=== PATIENT | female | born 1965 | race Caucasian/White ===

== ENCOUNTER 2017-10-18 18:56 | Inpatient (IN) | payer MEDICAID ==
[~2017-10-18] VITALS: Ht 167.6 cm; Wt 61.8 kg
--- NOTE | 2017-10-18 19:02 | NUR ---
[id number] FROM HOME,PT CALLED 911 BECAUSE SHE IS NOT FEELING GOOD. DIFFICULTY EXPRESSING SELF. PATIENT IS AWAKE AND ALERT, RESPONSE SLOW; PT NOT IN DISTRESS.
[2017-10-18 19:21] LABS: BASOPHILS # (AUTO) 0.1 /CMM (0.0-0.2); BASOPHILS % (AUTO) 0.7 % (0.0-2.0); EOSINOPHILS % (AUTO) 0.7 % (0.0-6.0); HEMATOCRIT 51 % (33-45); HEMOGLOBIN 17.3 g/dL (11.5-14.8); LYMPHOCYTES % (AUTO) 12.3 % (20.0-44.0); MEAN CORPUSCULAR HGB CONC 34 g/dl (31.0-36.0); MEAN CORPUSCULAR VOLUME 88 fL (82-100); MONOCYTES # (AUTO) 0.8 /CMM (0.1-1.30); MONOCYTES % (AUTO) 10.4 % (2.0-12.0); NEUTROPHILS # (AUTO) 6.1 /CMM (1.8-8.9); NEUTROPHILS % (AUTO) 75.9 % (43.0-81.0); PLATELET COUNT (AUTO) 326 /CMM (150-450); RDW COEFFICIENT OF VARIATION 12.1 (11.5-15.0); RED BLOOD CELL COUNT(AUTO) 5.76 MIL/uL (4.0-5.2); WHITE BLOOD COUNT (AUTO) 8.1 K/uL (4.3-11.0)
[2017-10-18] MEDS ORDERED: IV NS 0.9% 1,000 ML BAG IV ONE (19:30)
[2017-10-18 19:38] LABS: CALCIUM, SERUM 9.9 mg/dL (8.5-10.1); CARBON DIOXIDE 27 mmol/L (21-32); CHLORIDE 96 mmol/L (98-107); GLUCOSE 112 mg/dL (74-106); INR 1.01 (0.85-1.15); POTASSIUM 3.5 mmol/L (3.5-5.1); SODIUM SERUM 134 mmol/L (136-145); UREA NITROGEN, BLOOD 8 mg/dL (7-18)
[2017-10-18 19:42] LABS: TROPONIN I < 0.017 ng/mL (0.00-0.056)
[2017-10-18 19:44] LABS: ALANINE AMINOTRANSFERASE 21 U/L (12-78); ALBUMIN 4.4 g/dL (3.4-5.0); ALKALINE PHOSPHATASE 72 U/L (46-116); ASPARTATE AMINOTRANSFERASE 14 U/L (15-37); BILIRUBIN,DIRECT 0.2 mg/dL (0.0-0.2); BILIRUBIN,TOTAL 0.9 mg/dL (0.2-1.0); TOTAL PROTEIN, SERUM 8.6 g/dL (6.4-8.2)
[2017-10-18] MEDS ORDERED: CT SWABBABLE VALVE TRANS SET 1 EA INFUS.SET MC ONE (19:45)
[2017-10-18] MEDS ORDERED: IV NS 0.9% 250 ML IV ONE (19:45)
[2017-10-18] MEDS ORDERED: IOHEXOL-350 100 ML VIAL IV ONE (19:45)
--- NOTE | 2017-10-18 19:50 | NUR ---
PATIENT WAS TAKEN TO CT
[2017-10-18 20:03] LABS: CHOLESTEROL 197 mg/dL (<200); HDL CHOLESTEROL 68 mg/dL (40-60); LDL 120 mg/dL (0-99); TRIGLYCERIDES 60 mg/dL (30-150)
[2017-10-18] MEDS ORDERED: DEXAMETHASONE SOD PHOSPHATE 10 MG/ML VIAL ONE (20:22)
[2017-10-18] MEDS ORDERED: LEVETIRACETAM (500MG) 500 MG/5 ML VIAL IV ONE (20:22)
[2017-10-18] MEDS ORDERED: LEVETIRACETAM (500MG) 500 MG in IV NS 0.9% 100 ML IV SCH (20:30)
[2017-10-18] MEDS ORDERED: DEXAMETHASONE SOD PHOSPHATE 10 MG/ML VIAL IV ONE (20:30)
--- NOTE | 2017-10-18 20:59 | NUR ---
DR. MORENO PAGED FOR ADMISSION.
[2017-10-18] MEDS ORDERED: MAGNESIUM HYDROXIDE 30 ML UDC PO PRN (21:30)
[2017-10-18] MEDS ORDERED: ONDANSETRON HCL/PF 4 MG/2 ML VIAL IVP PRN (21:30)
[2017-10-18] MEDS ORDERED: HYDROCODONE/APAP 5/325MG 1 EACH TABLET PO PRN (21:30)
[2017-10-18] MEDS ORDERED: ALBUTEROL FS 2.5 MG/3 ML VIAL.NEB NEB PRN (21:30)
[2017-10-18] MEDS ORDERED: MAG HYDROX/AL HYDROX/SIMETH 30 ML UDC PO PRN (21:30)
[2017-10-18] MEDS ORDERED: MORPHINE SULFATE INJ 2 MG/ML DISP.SYRIN IV PRN (21:30)
[2017-10-18] MEDS ORDERED: ACETAMINOPHEN 325 MG TABLET PO PRN (21:30)
[2017-10-18] MEDS ORDERED: hydrALAZINE HCL IV 20 MG VIAL IV PRN (21:30)
[2017-10-18] MEDS ORDERED: Z GUARD REMEDY 2 OZ OINT TP PRN (21:30)
--- NOTE | 2017-10-18 21:45 | NUR ---
PATIENTS FRIENDS PAPO MARCELLUS
[2017-10-18 22:08] LABS: THYROID STIMULATING HORMONE 0.342 uIU/mL (0.358-3.74)
[2017-10-18 22:25] LABS: ABG BASE EXCESS 1.6 mmol/L; ABG OXYGEN SATURATION 96.7 % (92.0-98.5); ABG PCO2 28.7 mmHg (35.0-45.0); ABG PH 7.523 (7.350-7.450); ABG PO2 85.7 mmHg (75.0-100.0); AaDO2 29.7 mmHg; COHb 0.5 % (0.5-1.5); MetHb 0.6 % (0.0-1.5); O2Hb 95.6 % (94.0-97.0); SITE, ABG Right Radial; VENT MODE, BG R.A.
[2017-10-18 22:56] VITALS: BP 143/88
--- NOTE | 2017-10-18 23:00 | NUR ---
SHAKE SPLITTER RCD PT FROM ER W/DX ICH; PT IS A/O x4 ABLE TO ANSWER ALL QUESTIONS APPROPRIATELY AND ABLE TO MOVE ALL EXTREMITIES. NS/NSR ON MONITOR. CLEAR LUNG SOUNDS ON ROOM AIR. UNABLE TO DO PENDING CTS AT THIS TIME PT RECENTLY RCD CONTRAST; PER RD CT CAN BE DONE IN THE AM. NOTIFIED. PT EDUCATED ON PLAN OF CARE.
[2017-10-18] MEDS: SIMVASTATIN 10 MG TABLET PO SCH (23:11)
[2017-10-18] MEDS: IV NS 0.9% 1,000 ML IV PRN (23:12)
[2017-10-18 23:17] VITALS: BP 137/95
[2017-10-18] MEDS: LEVETIRACETAM (500MG) 500 MG in IV NS 0.9% 100 ML IV SCH (23:22)
[2017-10-18 23:30] VITALS: BP 144/96
[2017-10-19] VITALS (39 sets, daily range): BP systolic 111–158; BP diastolic 50–102
[2017-10-19] MEDS ORDERED: DEXTROSE 50%-WATER 50 ML DISP.SYRIN IV PRN (01:00)
--- NOTE | 2017-10-19 01:00 | NUR ---
DISPATCH COORDINATOR PT REMAINS A/O x4; ABLE TO MAKE ALL NEEDS KNOWN. DENIES PAIN. ABLE TO REPOSITION SELF. ASSISTED TO USE BED RAMOS.
[2017-10-19] MEDS ORDERED: INSULIN REGULAR, HUMAN 100 UNIT/ML 3 ML VIAL ONE (01:13)
[2017-10-19] MEDS: BLOOD SUGAR DIAGNOSTIC 1 EACH STRIP IN SCH ×5 (01:18→23:07)
[2017-10-19] MEDS: INSULIN REGULAR, HUMAN 100 UNIT/ML 3 ML VIAL SQ PRN ×3 (01:21→17:06)
[2017-10-19 04:38] LABS: BASOPHILS % (AUTO) 0.4 % (0.0-2.0); HEMATOCRIT 46 % (33-45); HEMOGLOBIN 15.9 g/dL (11.5-14.8); LYMPHOCYTES # (AUTO) 0.5 /CMM (0.8-4.8); LYMPHOCYTES % (AUTO) 5.4 % (20.0-44.0); MEAN CORPUSCULAR HGB CONC 35 g/dl (31.0-36.0); MEAN CORPUSCULAR VOLUME 87 fL (82-100); MONOCYTES # (AUTO) 0.4 /CMM (0.1-1.30); MONOCYTES % (AUTO) 4.1 % (2.0-12.0); NEUTROPHILS # (AUTO) 8.3 /CMM (1.8-8.9); NEUTROPHILS % (AUTO) 90.1 % (43.0-81.0); PLATELET COUNT (AUTO) 329 /CMM (150-450); RDW COEFFICIENT OF VARIATION 11.9 (11.5-15.0); WHITE BLOOD COUNT (AUTO) 9.2 K/uL (4.3-11.0)
[2017-10-19 04:47] LABS: CALCIUM, SERUM 9.3 mg/dL (8.5-10.1); CREATININE 0.8 mg/dL (0.6-1.3); MAGNESIUM 2.1 mg/dL (1.8-2.4); PHOSPHORUS 4.4 mg/dL (2.5-4.9); POTASSIUM 3.5 mmol/L (3.5-5.1)
--- NOTE | 2017-10-19 06:43 | NUR ---
WAREHOUSE GUARD PT REMAINED A/O x4; VSS. PT DENIES PAIN. ABLE TO FULLY PARTICIPATE IN ADLs.
--- NOTE | 2017-10-19 07:41 | NUR ---
RN INITIAL NOTES RECEIVED PT AWAKE AND ALERT WITH NAD. PT IS ABLE TO VERBALIZE NEEDS AND DENIES PAIN AT THIS TIME. ABLE TO PARTICIPATE WITH ADLS WITHOUT LIMITATIONS; ROM WNL; SPEECH IS CLEAR. PT DENIES HEADACHE OR BLURRING OF VISION. IFV INFUSING WELL. SAFETY ENSURED. SINUS RHYTHM ON THE MONITOR. ALL NEEDS ATTENDED. WILL MONITOR
[2017-10-19] MEDS: PANTOPRAZOLE 40 MG VIAL IV SCH (08:48)
[2017-10-19] MEDS: DEXAMETHASONE SOD PHOSPHATE 10 MG/ML VIAL IV SCH ×2 (08:50→16:05)
--- NOTE | 2017-10-19 09:56 | NUR ---
RN NOTES PT SEEN AND ASSESSED BY DR BRITO; SCHEDULED KEPPRA NOT GIVEN , ORDER DISCONTINUED. PT ALSO SEEN AND ASSESSED BY SPEECH THERAPIST
--- NOTE | 2017-10-19 10:58 | NUR ---
Social service consult requested by Dr. Loo for next of kin contact. Pt. 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 This is a new diagnosis for pt. that was discovered at this hospitalization. SW met with pt. bedside. Pt. is alert and oriented x 4. Pt. states [place] alone [place] [address], [address] in [place]. Pt's emergency contacts are her friends Mirta and Iva . Pt's family is in [place] [facility] [facility]. Per pt. she does not want her family to know about her diagnosis at this time. Pt. stated, she was drinking the weight loss detox tea and had high blood pressure. She started feeling very sick and came to [facility]. Pt. stated she is glad she came or else she would have not know about her brain tumor. SW provided active listening and emotional support and informed pt. she is available, if needed. No other social service needs are required at this time. SW is available, if needed.
[2017-10-19] MEDS: LEVETIRACETAM (500MG) 500 MG in IV NS 0.9% 100 ML IV SCH ×2 (11:25→21:59)
[2017-10-19] MEDS ORDERED: HYDR25TA4 PO (15:26)
[2017-10-19] MEDS: IV NS 0.9% 1,000 ML IV PRN (16:06)
[2017-10-19] MEDS ORDERED: IOHEXOL-300 100 ML VIAL IV ONE (16:23)
[2017-10-19] MEDS ORDERED: IV NS 0.9% 250 ML IV ONE (16:24)
--- NOTE | 2017-10-19 17:46 | NUR ---
RN CLOSING NOTES ENDORSED PT TO RN ARPI FOR CONTINUITY OF CARE IN STABLE CONDITION
--- NOTE | 2017-10-19 19:10 | NUR ---
ICU/RN ENDING NOTES,AM REPORT ENDORSED TO NIGHT NURSE FOR SILVINO. PT ALERT, AWAKE, FOLLOWS COMMANDS. VSS. NO DISTRESS. NO NEUROLOGICAL DEFICITS NOTED. WILL CONTINUE TO MONITOR AND ASSESS.
--- NOTE | 2017-10-19 20:00 | NUR ---
received pt from day shift, a/o x4, follows commands, SR, SB, RA, lungs clear, no edema, regular diet, bedside commode, v/s stable, no pain, pt turns and repositions by herself, friends at the bedside.
[2017-10-19] MEDS ORDERED: GADOVERSETAMIDE 2.5 MMOL/5 ML VIAL IJ ONE (20:49)
[2017-10-19] MEDS: DEXAMETHASONE SOD PHOSPHATE 4 MG/ML VIAL IV SCH (21:59)
[2017-10-19] MEDS: SIMVASTATIN 10 MG TABLET PO SCH (21:59)
[2017-10-20] VITALS (43 sets, daily range): BP systolic 107–173; BP diastolic 55–101
--- NOTE | 2017-10-20 00:03 | NUR ---
Decadron at 0000 not given. It is given at 2200 and it is q6hrs next dose will be given at [address] Najera.
--- NOTE | 2017-10-20 04:21 | NUR ---
pt is resting in the bed, no acute distress overnight, alert, follows commands, v/s stable, no pain, pt cleaned and changed.
[2017-10-20] MEDS: DEXAMETHASONE SOD PHOSPHATE 4 MG/ML VIAL IV SCH ×5 (05:02→23:39)
[2017-10-20] MEDS: BLOOD SUGAR DIAGNOSTIC 1 EACH STRIP IN SCH ×4 (05:23→23:39)
[2017-10-20 06:13] LABS: INR 1.02 (0.87-1.13)
--- NOTE | 2017-10-20 07:15 | NUR ---
TRANSPORT TRUCK DRIVER NOTES RECEIVED PATIENT ASLEEP , AOX4 , NOT IN ACUTE DISTRESS , RESPIRATIONS EVEN AND UNLABORED , SPO2 OF 100% VIA RA , SB 49 ON BEDSIDE MONITOR , IV OF L AC # 18 AND R AC # 20 PATENT AND INTACT WITH NS @ 75ML/HR INFUSING WELL , ALL NEEDS ATTENDED , BED ON LOW AND LOCKED POSITION , SIDE RAILS X2 ,CALL LIGHT WITHIN REACH , WILL CONTINUE TO MONITOR
[2017-10-20] MEDS: LEVETIRACETAM SOL (5 ML) 100 MG/ML UDC PO SCH ×2 (08:41→21:11)
[2017-10-20] MEDS: PANTOPRAZOLE 40 MG VIAL IV SCH (08:41)
--- NOTE | 2017-10-20 09:30 | NUR ---
SHELLFISH MANAGER NOTES SEEN AND EVALUATED BY DR BRITO SEEN AND EVALUATED BY DR MILLS , DISCUSSED LABS , CHEST XRAY , CTA OF THE HEAD AND CHEST RESULT , PT FOR CT GUIDED LUNG BIOPSY TODAY , V/S STABLE , AOX4 , V/S STABLE DENIES NUMBNESS AND TINGLING SENSATION X4 EXTREMITY , MD EXPLAINING RISK AND BENEFITS OF CT GUIDED LUNG BIOPSY ,
[2017-10-20] MEDS ORDERED: NALOXONE HCL 0.4 MG/ML AMPUL IV PRN (12:05)
[2017-10-20] MEDS ORDERED: FENTANYL PF 250MCG/5ML AMPUL IV PRN (12:06)
[2017-10-20] MEDS: IV NS 0.9% 1,000 ML IV PRN (12:27)
[2017-10-20] MEDS ORDERED: MIDAZOLAM HCL 2 MG/2ML VIAL IV PRN (12:30)
[2017-10-20] MEDS ORDERED: MIDAZOLAM HCL 5 MG/5ML VIAL IV PRN (12:30)
--- NOTE | 2017-10-20 13:00 | NUR ---
MOSS BLEACHER NOTES SEEN AND EVALUATED BY DR HINDS , DISCUSSED THAT PT HAS NO LABS FOR TODAY , CURRENTLY STABLE , SPEECH IS CLEAR , V/S STABLE , NO NUMBNESS OR TINGLING SENSATION REPORTED , PENDING CT GUIDED BIOPSY OF LEFT LUNG , MD AWARE .
--- NOTE | 2017-10-20 16:00 | NUR ---
PROCESS CONTROL MANAGER NOTES TRANSFERRED PT TO RADIOLOGY DEPARTMENT VIA ACLS PROTOCOL FOR CT GUIDED LUNG BIOPSY (LEFT LUNG) , PT STABLE AT THIS TIME , SPO2 OF 100% VIA RA , AFEBRILE , CONSENTS VERIFIED , WILL CONTINUE TO MONITOR .
--- NOTE | 2017-10-20 16:15 | NUR ---
ASSEMBLER ERECTOR NOTES DR MENDOZA AND DEANNE AT BEDSIDE FOR CT GUIDED BIOPSY OF THE LEFT LUNG , CONSENT VERIFIED , TIME OUT RENDERED , SEE MODERATE SEDATION SHEET AT THE CHART , PT CURRENTLY STABLE AT THIS TIME ,WILL CONTINUE TO MONITOR
--- NOTE | 2017-10-20 16:45 | NUR ---
E D TECH NOTES CT GUIDED BIOPSY OF THE LEFT LUNG ENDED , PT STABLE , CT SCAN REVIEWED BY DR MENDOZA , NO POST OP ORDERED RECEIVED , SEE MODERATE SEDATION SHEET FOR SERIES OF EVENTS
--- NOTE | 2017-10-20 16:50 | NUR ---
BDR NOTES TRANSFERRED PT TO ROOM 253 VIA ACLS PROTOCOL , PT STABLE DENIES DISCOMFORT AT SOB , V/S STABLE , LEFT UPPER LATERAL SIDE BIOPSY SITE DRESSING C/D/I NO ACTIVE BLEED NOTED , NOTIFIED DR HINDS REGARDING POST OP PROCEDURE , PT STABLE , VERIFY IF HE WANTS TO START DIET , PER MD START REGULAR DIET , DC IVF ORDERED , WILL CONTINUE TO MONITOR
--- NOTE | 2017-10-20 18:00 | NUR ---
PARTS CATALOGUER NOTES NOTIFIED DR JETT THAT NO LABS ORDERED FOR TOMORROW , MD AWARE , NO NEW ORDERS RECEIVED
--- NOTE | 2017-10-20 18:30 | NUR ---
OUTSIDE PLANT ENGINEER NOTES LEFT LATERAL UPPER SIDE BIOSPY SITE DRESSING C/D/I , DENIES ANY SOB AND DISCOMFORT , SPO2 OF 100% VIA RA .
--- NOTE | 2017-10-20 20:41 | NUR ---
received pt from day shift, a/o x4, follows commands, SB, RA, s/p DULCE lung mass biopsy, site observed, no bleeding or swelling noted, pt denies discomfort or SOB, v/s stable, no pain, pt turns and repositions by herself, friend at the bedside.
[2017-10-20] MEDS: SIMVASTATIN 10 MG TABLET PO SCH (21:11)
[2017-10-20] MEDS ORDERED: DEXAMETHASONE SOD PHOSPHATE 4 MG/ML VIAL IV SCH ×2 (22:00)
[2017-10-20] MEDS: INSULIN REGULAR, HUMAN 100 UNIT/ML 3 ML VIAL SQ PRN (23:49)
[2017-10-21] VITALS (14 sets, daily range): BP systolic 119–152; BP diastolic 69–89
--- NOTE | 2017-10-21 00:23 | NUR ---
pt is resting in the bed, v/s stable, no pain.
--- NOTE | 2017-10-21 04:18 | NUR ---
pt is resting in the bed, SB, RA, sat well, v/s stable, no pain.
[2017-10-21] MEDS: BLOOD SUGAR DIAGNOSTIC 1 EACH STRIP IN SCH ×4 (05:23→23:08)
[2017-10-21] MEDS: DEXAMETHASONE SOD PHOSPHATE 4 MG/ML VIAL IV SCH ×4 (05:23→23:08)
--- NOTE | 2017-10-21 07:05 | NUR ---
RN INITIAL NOTES RECEIVED PT ASLEEP, EASILY AROUSABLE. ON ROOM AIR. NO RESPIRATORY DISTRESS NOTED. NO SOB NOTED. DENIES ANY PAIN. IV LINES IN PLACE. SKIN INTACT. CALL LIGHT WITHIN REACH. WILL CONTINUE TO MONITOR.
[2017-10-21] MEDS: LEVETIRACETAM SOL (5 ML) 100 MG/ML UDC PO SCH ×2 (08:31→21:04)
[2017-10-21] MEDS: PANTOPRAZOLE 40 MG VIAL IV SCH (08:31)
--- NOTE | 2017-10-21 09:00 | NUR ---
RN NOTES SEEN AND EXAMINED BY DR. MILLS. AWARE OF CURRENT LAB VALUES AND IMAGING RESULT. AWAITING FOR BIOPSY RESULT. WILL CONTINUE TO MONITOR.
[2017-10-21 10:12] LABS: HEMATOCRIT 38 % (33-45); LYMPHOCYTES # (AUTO) 0.4 /CMM (0.8-4.8); LYMPHOCYTES % (AUTO) 2.4 % (20.0-44.0); MEAN CORPUSCULAR HGB CONC 34 g/dl (31.0-36.0); MEAN CORPUSCULAR VOLUME 89 fL (82-100); MONOCYTES # (AUTO) 0.3 /CMM (0.1-1.30); MONOCYTES % (AUTO) 1.7 % (2.0-12.0); NEUTROPHILS # (AUTO) 16.6 /CMM (1.8-8.9); NEUTROPHILS % (AUTO) 95.9 % (43.0-81.0); PLATELET COUNT (AUTO) 279 /CMM (150-450); RDW COEFFICIENT OF VARIATION 12.9 (11.5-15.0); RED BLOOD CELL COUNT(AUTO) 4.28 MIL/uL (4.0-5.2); WHITE BLOOD COUNT (AUTO) 17.4 K/uL (4.3-11.0)
[2017-10-21 10:22] LABS: CALCIUM, SERUM 8.4 mg/dL (8.5-10.1); CREATININE 0.9 mg/dL (0.6-1.3); POTASSIUM 3.7 mmol/L (3.5-5.1)
--- NOTE | 2017-10-21 10:30 | NUR ---
RN NOTES SEEN AND EXAMINED BY DR. HINDS. BMP RESULT PENDING. BIOPSY RESULT PENDING. PT A/OX4. DENIES ANY PAIN. PT OK FOR DOWNGRADE TO TELE. WILL MONITOR
--- NOTE | 2017-10-21 10:40 | NUR ---
RN NOTES PT TRANSFERRED TO ROOM 102. PT A/OX4. PT ON ROOM AIR. NO RESPIRATORY DISTRESS NOTED. NO SOB NOTED. DENIES ANY PAIN. CALL LIGHT WITHIN REACH. REPORT GIVEN TO VALERIE MARIA AT BEDSIDE. TOOK OVER PT'S CARE.
--- NOTE | 2017-10-21 10:45 | NUR ---
HOSPITAL MEDICAL BILLER NOTE: RECEIVED PATIENT IN ROOM 102 AND REPORT WAS GIVEN BY ARIES, SODA COLUMN OPERATOR. PATIENT IS AWAKE, ALERT AND VERBALLY RESPONSIVE. RESPIRATION IS EVEN AND UNLABORED. DENIED ANY PAIN. NO SLURRED SPEECH NOTED. (L) AND (R) AC IV LINE NOTED PATENT AND INTACT. ON HUMAN RESOURCES OPERATIONS MANAGER, SR HR= 60. BED IN LOWEST POSITION AND LOCKED AT ALL TIMES. HOB ELEVATED. ALL BELONGINGS WERE RECEIVED FROM ICU. CALL LIGHT WITHIN REACH.
[2017-10-21] MEDS: INSULIN REGULAR, HUMAN 100 UNIT/ML 3 ML VIAL SQ PRN ×3 (12:38→23:15)
--- NOTE | 2017-10-21 14:58 | NUR ---
CHIOMA met with pt. bedside to give her verification of admission letter for her parent's to come to [place]. from [facility]. Pt. was recently diagnosed with metastasis cancer. SW continued to provide active listening and emotional support. CHIOMA discussed with pt. regarding applying for temporary disability vs permanent disability. CHIOMA gave pt. address to social security office located at [address] . CHIOMA also informed pt. to go to [facility] for future medical care once pt. is discharge from the hospital. Pt. wanted to follow up on her [employer] insurance status. CHIOMA gave her phone number to [facility] Liaison Christine Gamble . No other social service needs are required at this time. CHIOMA is available, if needed.
--- NOTE | 2017-10-21 19:15 | NUR ---
ADJUNCT PROFESSOR OF VOICE INITIAL NOTE RECEIVED PATIENT RESTING COMFORTABLY IN BED, AOX4, DENIES ANY PAIN, NO CARDIAC OR RESPIRATORY DISTRESS. RAC #20G SL AND LAC #18G SL, BOTH PATENT FLUSHING WELL, SITE CDI. TELE SB 53. BEDSIDE COMMODE IN PLACE. SKIN IS DRY AND INTACT. SAFETY MAINTAINED AT ALL TIMES, BED IN LOW LOCKED POSITION, CALL LIGHT WITHIN REACH. WILL CONTINUE TO MONITOR FOR ANY CHANGES IN CONDITION.
--- NOTE | 2017-10-21 19:45 | NUR ---
SPRING CLIPPER NOTE: PATIENT AWAKE, ALERT AND VERBALLY RESPONSIVE. ON CORNER CUTTER MACHINE OPERATOR, SB HR= 53. RESPIRATION IS EVEN AND UNLABORED SATURATING 98% IN RA. DENIED PAIN. REPORT GIVEN TO PM SHIFT NURSE FOR CONTINUITY OF CARE. CALL LIGHT WITHIN REACH. BED LOCKED AND IN LOWEST POSITION AT ALL TIMES.
[2017-10-21] MEDS: SIMVASTATIN 10 MG TABLET PO SCH (21:04)
[2017-10-22] VITALS: BP 148/84
[2017-10-22 04:00] VITALS: BP 145/76
[2017-10-22] MEDS: BLOOD SUGAR DIAGNOSTIC 1 EACH STRIP IN SCH ×3 (06:15→17:04)
[2017-10-22] MEDS: DEXAMETHASONE SOD PHOSPHATE 4 MG/ML VIAL IV SCH ×2 (06:15→11:48)
[2017-10-22 06:23] LABS: HEMATOCRIT 38 % (33-45); HEMOGLOBIN 13.1 g/dL (11.5-14.8); LYMPHOCYTES # (AUTO) 0.5 /CMM (0.8-4.8); MEAN CORPUSCULAR HGB CONC 34 g/dl (31.0-36.0); MEAN CORPUSCULAR VOLUME 90 fL (82-100); MONOCYTES # (AUTO) 0.3 /CMM (0.1-1.30); MONOCYTES % (AUTO) 2.5 % (2.0-12.0); NEUTROPHILS # (AUTO) 12.4 /CMM (1.8-8.9); NEUTROPHILS % (AUTO) 93.5 % (43.0-81.0); PLATELET COUNT (AUTO) 265 /CMM (150-450); RDW COEFFICIENT OF VARIATION 12.9 (11.5-15.0); RED BLOOD CELL COUNT(AUTO) 4.27 MIL/uL (4.0-5.2); WHITE BLOOD COUNT (AUTO) 13.3 K/uL (4.3-11.0)
[2017-10-22 06:41] LABS: CALCIUM, SERUM 8.6 mg/dL (8.5-10.1); CREATININE 0.6 mg/dL (0.6-1.3); MAGNESIUM 2.2 mg/dL (1.8-2.4); PHOSPHORUS 3.6 mg/dL (2.5-4.9); POTASSIUM 4.1 mmol/L (3.5-5.1)
--- NOTE | 2017-10-22 06:55 | NUR ---
ALCOHOL LAW ENFORCEMENT AGENT CLOSING NOTE PATIENT IS IN NO ACUTE DISTRESS, RESTING COMFORTABLY IN BED. SAFETY MAINTAINED. WILL ENDORSE TO AM NURSE FOR CONTINUITY OF CARE.
--- NOTE | 2017-10-22 07:37 | NUR ---
PROFESSIONAL EMPLOYER CONSULTANT NOTE: RECEIVED PATIENT IN BED, ASLEEP, BUT AROUSABLE WHEN CALLING HER NAME. RESPIRATION IS EVEN AND UNLABORED SATURATING 97% IN ROOM AIR. ON OCEAN BIOLOGIST, SB HR= 45. PATIENT WAS LYING FLAT ON HER BED AND REQUESTED TO HAVE HER DOOR CLOSE SO SHE CAN MORE REST AND SLEEP. BED LOCKED AT ALL TIMES AND IN LOWEST POSITION. (L) AND (R) AC IV LINE NOTED PATENT AND INTACT. CALL LIGHT WITHIN REACH AT ALL TIMES. NO WEAKNESS NOTED. ABLE TO GRASP (B) HANDS AND (B) FEET WAS ABLE TO PUSH AGAINST RESISTANCE. WILL CONTINUE TO MONITOR THE PATIENT.
[2017-10-22 08:00] VITALS: BP 149/78
[2017-10-22] MEDS: PANTOPRAZOLE 40 MG VIAL IV SCH (08:47)
[2017-10-22] MEDS: LEVETIRACETAM SOL (5 ML) 100 MG/ML UDC PO SCH (08:47)
[2017-10-22] MEDS: INSULIN REGULAR, HUMAN 100 UNIT/ML 3 ML VIAL SQ PRN ×2 (11:52→17:09)
[2017-10-22 12:00] VITALS: BP_SYST 126; BP_SYST 97; BP_DIAS 126; BP_DIAS 76
[2017-10-22 16:00] VITALS: BP 138/79
[2017-10-22] MEDS ORDERED: DEXA4TAB PO (17:05)
--- NOTE | 2017-10-22 19:15 | NUR ---
SEWING PATTERN LAYOUT TECHNICIAN NOTE: PATIENT WAS DISCHARGED TO HOME W/ HER FRIEND, TEJAS BAEZ VIA PRIVATE CAR. DISCHARGE INSTRUCTIONS WAS PROVIDED TO THE PATIENT INCLUDING HER PRESCRIPTION FOR DECADRON. PATIENT UNDERSTOOD ALL THE DISCHARGE INSTRUCTIONS AND WAS GIVEN ALL THE MEDICAL RECORD RE: THE TESTS DONE DURING HOSPITALIZATION IT ALSO INCLUDED A CD OF ALL THE IMAGING DONE PER PATIENT'S REQUEST. PATIENT WAS INFORMED THAT IF SHE NEEDED TO GO TO THE HOSPITAL, SHE CAN GO TO [facility] TO BE SEEN FOR FOLLOW-UP APPOINTMENT. PATIENT WAS SEEN BY DR. ACE AND DR. CELESTINO HARRIS FOR HER TREATMENT PLAN AT [facility]. PATIENT REMAINED ON STABLE CONDITION. SHE WAS ESCORTED TO THE MAIN LOBBY OF THE HOSPITAL. ALL BELONGINGS WERE RELEASED W/ HER.
== END 2017-10-22 19:15 | disposition home or self-care (01) | DRG 121 ==
LOC: ER 19:03 → ICU 22:22 → TELE1 10-21 10:35
PROVIDERS: ADMIT Internal Medicine; ATTEND Internal Medicine
PROC: 0BDG4ZX Extraction of Left Upper Lung Lobe, Percutaneous Endoscopic Approach, Diagnostic (ICD-10-PCS; principal; 2017-10-21)
DX: C34.12 Malignant neoplasm of upper lobe, left bronchus or lung (principal); G93.6 Cerebral edema; C79.31 Secondary malignant neoplasm of brain; D75.1 Secondary polycythemia; I10 Essential (primary) hypertension; E78.5 Hyperlipidemia, unspecified; R47.01 Aphasia
CPT/HCPCS: 36415; 36600; 70450-TC; 70496-TC; 70553-TC; 71045-TC; 71270-TC; 74178; 77012-TC; 80048-TC; 80061-TC; 80076-TC; 80305; 82803-TC; 82962-TC; 83615-TC; 83735-TC; 84100-TC; 84443-TC; 84484-TC; 85025-TC; 85385-TC; 85610-TC; 85652-TC; 85730-TC; 87081-TC; 88305-TC; 88342; 92611-TC; 97112-TC; 97535-TC; A4606; A9579; C9113; J1100; J1815; J1953; J2250; J2310; J3010; J7030; J7050; Q9967; Z7610

== ENCOUNTER 2017-10-29 18:38 | Emergency (ER) | payer MEDICAID ==
[~2017-10-29] VITALS: Ht 167.6 cm; Wt 65.8 kg
[~2017-10-29 18:38] MED LIST: DEXA4TAB PO; HYDR25TA4 PO
--- NOTE | 2017-10-29 19:00 | NUR ---
PT TO ER BED 11. BIBRA C/O HEADACHE X 1 DAY, PT DX W/BRAIN CA LAST WEEK. PT PLACED IN GOWN AND ON TECHNOLOGY SUPPORT ANALYST. VSS/RESP EVEN UNLABORED/NAD NOTED/SKIN WARM AND DRY/DENIES N-V-D/AFEBRILE/AOX4. AWAITING MD ROA.
[2017-10-29] MEDS ORDERED: ONDANSETRON 4 MG TAB.RAPDIS SL ONE (19:30)
[2017-10-29] MEDS ORDERED: MORPHINE SULFATE INJ 2 MG/ML DISP.SYRIN IM ONE (19:30)
[2017-10-29] MEDS ORDERED: MORPHINE SULFATE INJ 4 MG/ML DISP.SYRIN ONE (19:30)
[2017-10-29] MEDS ORDERED: ONDANSETRON 4 MG TAB.RAPDIS ONE (19:31)
--- NOTE | 2017-10-29 19:55 | NUR ---
LAB AT BEDSIDE FOR DRAW.
[2017-10-29] MEDS ORDERED: HYDROMORPHONE INJ 2 MG/ML DISP.SYRIN ONE ×2 (19:56→20:31)
[2017-10-29 19:59] LABS: BASOPHILS # (AUTO) 0.2 /CMM (0.0-0.2); BASOPHILS % (AUTO) 1.1 % (0.0-2.0); EOSINOPHILS % (AUTO) 0.9 % (0.0-6.0); HEMATOCRIT 46 % (33-45); HEMOGLOBIN 15.5 g/dL (11.5-14.8); LYMPHOCYTES # (AUTO) 0.7 /CMM (0.8-4.8); LYMPHOCYTES % (AUTO) 4.5 % (20.0-44.0); MEAN CORPUSCULAR HGB CONC 34 g/dl (31.0-36.0); MEAN CORPUSCULAR VOLUME 88 fL (82-100); MONOCYTES # (AUTO) 0.6 /CMM (0.1-1.30); NEUTROPHILS # (AUTO) 13.1 /CMM (1.8-8.9); NEUTROPHILS % (AUTO) 89.5 % (43.0-81.0); PLATELET COUNT (AUTO) 346 /CMM (150-450); RDW COEFFICIENT OF VARIATION 12.2 (11.5-15.0); RED BLOOD CELL COUNT(AUTO) 5.21 MIL/uL (4.0-5.2); WHITE BLOOD COUNT (AUTO) 14.7 K/uL (4.3-11.0)
--- NOTE | 2017-10-29 19:59 | NUR ---
CALLED [facility], PRESENTED PT, SPOKE WITH RAY, HE SAID HE WILL HAVE SOMEONE CALL US BACK IN 20 MIN
[2017-10-29] MEDS ORDERED: HYDROMORPHONE 1 MG/1 ML DISP.SYRIN IM ONE ×2 (20:00→20:30)
[2017-10-29 20:14] LABS: CALCIUM, SERUM 8.9 mg/dL (8.5-10.1); CREATININE 0.8 mg/dL (0.6-1.3); POTASSIUM 3.4 mmol/L (3.5-5.1)
[2017-10-29 20:21] LABS: ALBUMIN 3.9 g/dL (3.4-5.0); BILIRUBIN,TOTAL 0.9 mg/dL (0.2-1.0); TOTAL PROTEIN, SERUM 7.8 g/dL (6.4-8.2)
--- NOTE | 2017-10-29 20:23 | NUR ---
RECEIVED CALL FROM SHANDRA AT [facility] [place], TRANSFERRED CALL TO GEORGE SHEETS).
--- NOTE | 2017-10-29 21:05 | NUR ---
FAXED FACESHEET AND CT RESULTS TO SHANDRA AT [facility] [phone]
--- NOTE | 2017-10-29 21:30 | NUR ---
RECEIVED CALL FROM SH[place] [facility] [place] WAS DENIED AT [facility] [place] BED[place] AND NO SERVICE AVAILABLE AT THIS TIME.
[2017-10-29] MEDS ORDERED: IV NS 0.9% 1,000 ML BAG IV ONE (22:00)
--- NOTE | 2017-10-29 22:14 | NUR ---
MD AT BEDSIDE SPEAKING WITH PATIENT.
--- NOTE | 2017-10-30 00:34 | NUR ---
PT RESTING QUIETLY, AROUSES TO VOICE. VSS, RN TO CONTINUE TO PROVIDE SAFETY/COMFORT MEASURES FOR PATIENT.
[2017-10-30] MEDS ORDERED: ONDANSETRON 4 MG TAB.RAPDIS ONE (04:12)
--- NOTE | 2017-10-30 04:15 | NUR ---
NO CHANGES PT RESTING QUIETLY, VSS/RESP EVEN UNLABORED.
[2017-10-30] MEDS ORDERED: ONDANSETRON 4 MG TAB.RAPDIS SL ONE (04:30)
[2017-10-30] MEDS ORDERED: ACETAMINOPHEN 325 MG TABLET ONE (05:56)
[2017-10-30] MEDS ORDERED: ACETAMINOPHEN 325 MG TABLET PO ONE (06:00)
--- NOTE | 2017-10-30 06:34 | NUR ---
Patient discharged to home in stable condition. Written and verbal after care instructions given. Patient verbalizes understanding of instruction, patient instructed not to drive. Patient is awake and alert to self, day, and place. Patient ambulatory with a steady gait.
[2017-10-30 06:36] VITALS: BP 158/87
== END 2017-10-30 06:37 | disposition home or self-care (01) ==
LOC: ER 18:40
DX: R51 Headache (principal); D49.6 Neoplasm of unspecified behavior of brain; I10 Essential (primary) hypertension
CPT/HCPCS: 36415; 70450-TC; 80053-TC; 85025-TC; A4606; J1170; J2270; J7030; Q0162; Z7610